=== PATIENT | male | born 1935 | race Caucasian/White ===

== ENCOUNTER → 2016-12-19 | Outpatient (CLI) | payer MEDICARE ==
[~2016-12-19] MED LIST: ALPRAZOLAM0.5 MG PO; APRESOLINE25 MG PO; BACTROBAN22 GM TOP; BETIMOL5 ML EYERT; COREG25 MG PO; DEMADEX20 MG PO; DIOVAN160 MG PO; FLOMAX0.4 MG PO; NOVOLOG FL100 UNIT/1 SUBCUT; PROSCAR5 MG PO; REPATHA PU420 MG/3.5 SUBCUT; SYNTHROID150 MCG PO; TESTOSTERO200 MG/1 M IM; TOUJEO SOL300 UNIT/1 SUBCUT; TRIAMCINOLONE A15 GM TOP; VIAGRA100 MG PO; XALATAN 0.005%2.5 ML EYERT
== END | disposition short-term general hospital (02) ==
LOC: CLCARD 09:09
DX: E78.5 Hyperlipidemia, unspecified (principal); E11.9 Type 2 diabetes mellitus without complications; E87.6 Hypokalemia; E03.9 Hypothyroidism, unspecified; I11.0 Hypertensive heart disease with heart failure; I50.30 Unspecified diastolic (congestive) heart failure

== ENCOUNTER 2017-03-12 14:34 | Emergency (ER) | payer MEDICARE ==
[~2017-03-12] VITALS: Ht 180.3 cm; Wt 111.1 kg
== END 2017-03-12 15:45 | disposition short-term general hospital (02) ==
LOC: ER 14:34
DX: S76.011A Strain of muscle, fascia and tendon of right hip, initial encounter (principal); Z88.0 Allergy status to penicillin; Z88.2 Allergy status to sulfonamides; Z88.8 Allergy status to other drugs, medicaments and biological substances; W01.0XXA Fall on same level from slipping, tripping and stumbling without subsequent striking against object, initial encounter; Z79.82 Long term (current) use of aspirin
CPT/HCPCS: 73502-RT